=== PATIENT | female | born 2000 | race African-American/Black ===

== ENCOUNTER 2023-12-27 16:52 | Emergency (ER) | payer BC, SELFPAY ==
--- NOTE | ~2023-12-27 | XR_ITS ---
EXAMINATION: Left foot and ankle x-ray CLINICAL INFORMATION: Pain COMPARISON: None. TECHNIQUE: 3 views of the left foot and views of the left ankle FINDINGS: Left foot: Bone alignment is normal. No fracture or dislocation. Normal joint spaces. Left ankle: Bone alignment is normal. No fracture or dislocation. Normal ankle mortise. Normal soft tissues. XR/XR ankle LT 2V IMPRESSION: Unremarkable examination.
--- NOTE | ~2023-12-27 | XR_ITS ---
EXAMINATION: Left foot and ankle x-ray CLINICAL INFORMATION: Pain COMPARISON: None. TECHNIQUE: 3 views of the left foot and views of the left ankle FINDINGS: Left foot: Bone alignment is normal. No fracture or dislocation. Normal joint spaces. Left ankle: Bone alignment is normal. No fracture or dislocation. Normal ankle mortise. Normal soft tissues. XR/XR foot LT 2V IMPRESSION: Unremarkable examination.
[2023-12-27 17:24] VITALS: BP 145/78; PULSE 89; RESP 16; TEMP 36.9; BMI 46.3
[2023-12-27 20:00] VITALS: BP 125/72; PULSE 87; RESP 16; TEMP 37; O2SAT 99
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
== END 2023-12-27 22:49 | disposition home or self-care (01) ==
PROVIDERS: Emergency Provider Emergency Medicine
DX: S93.401A Sprain of unspecified ligament of right ankle, initial encounter (principal); Y33.XXXA Other specified events, undetermined intent, initial encounter; Y93.9 Activity, unspecified; Y92.9 Unspecified place or not applicable; Y99.8 Other external cause status
CPT/HCPCS: 29515; 73600; 73620; 99283; 99284

== ENCOUNTER 2024-06-22 16:39 | Emergency (ER) | payer BC, SELFPAY ==
--- NOTE | ~2024-06-22 | US_ITS ---
EXAMINATION: US PELVIS CLINICAL INFORMATION: Pain with vaginal discharge. History of pelvic inflammatory disease COMPARISON: None available. TECHNIQUE: Ultrasound of the pelvis is performed using both transabdominal and transvaginal transducers along with Doppler. Transvaginal imaging is performed due to inadequate visualization transabdominally. FINDINGS: Uterus: The uterus is anteverted and measures 7.3 x 3.0 x 3.5 cm. Anteroflexed The double wall endometrial thickness is 0.5 mm. The uterus is smooth in contour and has normal myometrial echogenicity. Fluid seen in the cervix Adnexa: Both ovaries are visualized. There is normal color flow to the adnexa. There is no ovarian torsion. There is no pelvic ascites or fluid collection. Physiologic changes. Right ovary measures 4.2 x 2.2 x 1.9 cm. Volume 9.2 milliliters Left ovary measures 3.9 x 1.2 x 2.1 cm. Volume 5.2 milliliters US/US pelvic and transvaginal IMPRESSION: Anteroflexed uterus. Otherwise unremarkable pelvic ultrasound. Electronically signed by: Jean Lemus MD 06/22/2024 06:45 PM EDT
[2024-06-22 16:57] VITALS: BP 122/75; PULSE 92; RESP 16; TEMP 36.7; O2SAT 97; BMI 47.1
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
[2024-06-22 18:00] VITALS: BP 108/52; PULSE 78; RESP 14; TEMP 36.1; O2SAT 98
--- NOTE | 2024-06-22 18:05 | PC.NURSE ---
re late abx admin, pt in US at this time
[2024-06-22] MEDS: cefTRIAXone sodium 500 MG, Lidocaine HCl 1 % MPF 1 ML IM (18:27)
[2024-06-22] MEDS: metroNIDAZOLE 500 MG TABLET PO (18:28)
[2024-06-22] MEDS: Doxycycline Monohydrate 100 MG CAPSULE PO (18:28)
[2024-06-22 19:06] LABS: Appearance Urine Clear; Color Urine Yellow; Glucose Urine UA Negative (Negative); Leukocyte Esterase Urine Negative (Negative); Nitrite Urine Negative (Negative); PH 5.5 (5.0-9.0); UPreg QC Valid YES; Urine Blood Negative (Negative); Urine Ketones Negative (Negative); Urine Pregnancy NEGATIVE (NEGATIVE); Urine Protein Negative (Neg-Trace)
[2024-06-22 19:17] LABS: MANUAL DIFF FLAG NO
[2024-06-22 19:21] LABS: Basophils Percent Auto 0.3 % (0-2); Eosinophils Absolute Auto 0.1 X10*3/uL (0.0-0.4); Eosinophils Percent Auto 0.6 % (0-4); Hematocrit 37.3 % (37.0-47.0); Hemoglobin 12.4 g/dl (12.0-16.0); Imm Gran Abs Auto 0.05 X10*3/uL (0.00-0.03); Imm Gran Pct Auto 0.4 % (0.0-0.4); Lymphocytes Absolute Auto 2.7 X10*3/uL (1.2-4.9); Mean Corpuscular HGB Conc 33.2 g/dl (31.0-35.0); Mean Corpuscular Hemoglobin 28.8 pg (27.0-33.0); Mean Corpuscular Volume 86.5 fL (80.0-98.0); Monocytes Absolute Auto 0.6 X10*3/uL (0.1-1.2); Neutrophils Absolute Auto 8.7 x10*3/uL (2.0-8.3); Neutrophils Percent Auto 71.7 % (45-73); Platelet Count 280 X10*3/uL (160-400); Red Blood Count 4.31 X10*6/uL (4.20-5.50); Red Cell Distribution Width 11.9 % (11.0-16.0); White Blood Count 12.2 X10*3/uL (4.8-10.8)
[2024-06-22 19:33] LABS: Alanine Aminotransferase 40 U/L (0-31); Albumin Level 4.1 g/dL (3.5-5.0); Alkaline Phosphatase 86 U/L (39-117); Anion Gap 14 (12-20); Aspartate Amino Transferase 25 U/L (5-31); Bilirubin Direct 0.1 mg/dL (0.0-0.5); Bilirubin Total 0.3 mg/dL (0.0-1.0); Blood Urea Nitrogen 9 mg/dL (9-16); Calcium 9.4 mg/dL (8.4-10.2); Carbon Dioxide 24 mmol/L (22-29); Chloride 104 mmol/L (96-108); Creatinine Clr Calc Pharmacy 149.3; Estimated Glomerular Filt Rate > 60; Glucose Random 88 mg/dL (60-115); Lipase 31 U/L (8-78); Magnesium 1.8 mg/dL (1.6-2.6); Potassium 4.1 mmol/L (3.3-5.1); Sodium 138 mmol/L (135-145); Total Protein 7.2 g/dL (6.5-8.0)
[2024-06-22 19:51] VITALS: BP 108/52; PULSE 78; RESP 14; TEMP 36.1; O2SAT 98
[2024-06-23 05:03] LABS: CT PCR NOT DETECTED (Not Detect.); NG PCR NOT DETECTED (Not Detect.)
[2024-06-23 08:13] LABS: Bacterial Vaginosis PCR NEGATIVE (Negative); Candida Group PCR NOT DETECTED (Not Detect); Candida glab krusei PCR NOT DETECTED (Not Detect); Trichomonas vaginalis PCR NOT DETECTED (Not Detect)
== END 2024-06-22 19:51 | disposition home or self-care (01) ==
PROVIDERS: Physician Assistant; Emergency Provider Emergency Medicine; PCP Physician Assistant Medical
DX: R10.2 Pelvic and perineal pain (principal); N89.8 Other specified noninflammatory disorders of vagina
CPT/HCPCS: 0352U; 36415; 76830; 76856; 80048; 80076; 81003; 81025; 83690; 83735; 85025; 87491; 87591; 96372; 99283; 99284; J0696